=== PATIENT | female | born 1995 ===

== ENCOUNTER 2017-03-01 13:03 | Emergency (ER) | payer OTHER ==
[2017-03-01 13:03] VITALS: BMI 27.8
[2017-03-01 14:05] VITALS: BP 102/72; PULSE 96
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
[2017-03-01 16:14] VITALS: RESP 16; TEMP 98.2; O2SAT 100
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
--- NOTE | 2017-03-01 16:58 | RAD ---
PROCEDURE: Radiographs of Nasal Bones HISTORY: trauma COMPARISON: None available. TECHNIQUE: Frontal and lateral radiographs of the nasal bones. FINDINGS: No definitive radiographic evidence of acute displaced left-sided nasal bone fracture. Right nasal bone appears somewhat blunted along its tip which could represent an anatomic variant. Anterior nasal spine appears intact as well. Consider followup CT scan if fracture is suspected clinically as CT is much more sensitive for detecting subtle maxillofacial skeletal fractures that may not be readily apparent on plain film imaging. IMPRESSION: No convincing evidence of acute displaced fracture nor dislocation however there is some blunting of the tip of the right nasal bones that may represent an anatomic variation. Decreased. Anterior nasal spine is intact. Consider followup CT scan if further evaluation is required as detailed above.
== END 2017-03-01 16:15 | disposition home or self-care (01) ==
LOC: ED 13:03
DX: S00.83XA Contusion of other part of head, initial encounter (principal); Y04.2XXA Assault by strike against or bumped into by another person, initial encounter; Y92.89 Other specified places as the place of occurrence of the external cause

== ENCOUNTER 2017-03-26 19:09 | Observation (INO) | payer OTHER ==
[2017-03-26 19:10] VITALS: BMI 27.8
[2017-03-26 19:17] VITALS: TEMP 98.7
[2017-03-26] MEDS ORDERED: Albuterol-Ipratrop 3 mg / 0.5 (3 ml) UD IH STA (19:24)
[2017-03-26] MEDS ORDERED: Sodium Chloride 0.9% 1,000 ML IV STA (19:24)
[2017-03-26] MEDS ORDERED: DiphenhydrAMINE 50 mg/ml Inj IVP STA (19:25)
--- NOTE | 2017-03-26 19:27 | ED PDOC ---
Arrival/HPI - General Chief Complaint: Shortness Of Breath Time Seen by Provider: 03/26/17 19:18 Historian: Patient - History of Present Illness Narrative History of Present Illness (Text): 21 y/o F c previous allergic reaction to peanut butter p/w shortness of breath x 30 minutes. Patient states she was at friend's house today who has a dog and dog ate unknown material (suspecting peanut butter?). She began having some facial flushing and swelling and went to her PMD today and was started on cetirizine. She states that she began having worsening shortness of breath in the last 30 minutes with coughing after which she developed some redness in her eyes. She reports cough x 2 days productive of yellow sputum. Denies fever, vomiting, throat swelling, voice change, drooling. Past Medical History - Provider Review Nursing Documentation Reviewed: Yes - Past History Past History: No Previous - Infectious Disease Hx of Infectious Diseases: None - Tetanus Immunization Tetanus Immunization: Up to Date - Past Medical History Past Medical History: No Previous - Cardiac Hx Cardiac Disorders: No - Pulmonary Hx Respiratory Disorders: Yes Other/Comment: SEASONAL ALLERGY - Neurological Hx Neurological Disorder: No - HEENT Hx HEENT Disorder: No - Renal Hx Renal Disorder: No - Endocrine/Metabolic Hx Endocrine Disorders: No - Hematological/Oncological Hx Blood Disorders: No - Integumentary Hx Dermatological Disorder: No - Musculoskeletal/Rheumatological Hx Falls: No - Gastrointestinal Hx Gastrointestinal Disorders: No - Genitourinary/Gynecological Hx Genitourinary Disorders: No - Psychiatric Hx Psychophysiologic Disorder: No Hx Substance Use: No - Past Surgical History Past Surgical History: No Previous - Surgical History Hx Cholecystectomy: Yes - Anesthesia Hx Anesthesia: Yes - Suicidal Assessment Feels Threatened In Home Enviroment: No Family/Social History - Physician Review Nursing Documentation Reviewed: Yes Family/Social History: No Known Family HX Smoking Status: Never Smoked Hx Alcohol Use: No Hx Substance Use: No Hx Substance Use Treatment: No Allergies/Home Meds Allergies/Adverse Reactions: Allergies Peanut butter Adverse Reaction (Uncoded 03/26/17 19:11) RASH Home Medications: Home Meds Medication Instructions Recorded Confirmed Cetirizine HCl [Wal-Zyr] 10 mg PO DAILY 03/26/17 03/26/17 Review of Systems - Physician Review All systems were reviewed & negative as marked: Yes - Review of Systems Constitutional: absent: Fevers Cardiovascular: absent: Chest Pain Physical Exam - Physical Exam Narrative Physical Exam (Text): Constitutional: No acute distress. Head: Normocephalic. Atraumatic. Eyes: PERRL. Bilateral subconjunctival hemorrhage. ENT: Moist mucous membranes. Airway patent. No throat swelling or drooling. Neck: Supple. Cardiovascular: Regular rate. Chest: No tenderness. Respiratory: Clear to auscultation bilaterally. No wheezing. GI: Soft. Nontender. Nondistended. Back: No CVA tenderness. Musculoskeletal: No tenderness or swelling of extremities. Skin: No rash. Neurologic: Alert, no focal deficit. Vital Signs Reviewed: Yes Vital Signs Temp Pulse Resp BP Pulse Ox 03/26/17 22:59 91 H 16 116/82 100 03/26/17 19:30 18 100 03/26/17 19:12 98.7 F 119 H 16 115/79 99 Temperature: Afebrile Blood Pressure: Normal Pulse: Tachycardic Respiratory Rate: Normal Appearance: Positive for: Well-Appearing, Non-Toxic, Comfortable Pain Distress: None Mental Status: Positive for: Alert and Oriented X 3 Medical Decision Making ED Course and Treatment: 21 y/o F c subjective shortness of breath without signs of dyspnea. Bilateral subconjunctival hemorrhage after coughing episode. Likely differential includes mild allergic reaction vs URI vs mild pneumonia. Will assess with CXR and treat with Benadryl, Pepcid, IVF, duoneb and reassess. - Lab Interpretations I have reviewed the lab results: Yes - RAD Interpretation Radiology Orders: 03/26/17 19:24 CHEST TWO VIEWS (PA/LAT) [RAD] Stat 03/26/17 21:57 ANGIO CHEST PE PROTOCOL [CT] Stat - Medication Orders Current Medication Orders: Discontinued Medications Albuterol/Ipratropium (Duoneb 3 Mg/0.5 Mg (3 Ml) Ud) 3 ml IH STAT STA Stop: 03/26/17 19:25 Last Admin: 03/26/17 19:36 Dose: 3 ml Diphenhydramine HCl (Benadryl) 50 mg IVP STAT STA Stop: 03/26/17 19:26 Last Admin: 03/26/17 19:35 Dose: 50 mg Famotidine (Pepcid) 20 mg IVP STAT STA Stop: 03/26/17 19:26 Last Admin: 03/26/17 19:35 Dose: 20 mg Sodium Chloride (Sodium Chloride 0.9%) 1,000 mls @ 999 mls/hr IV .Q1H1M STA Stop: 03/26/17 20:24 Last Admin: 03/26/17 19:35 Dose: 999 mls/hr Iodixanol (Visipaque 320 Mg/Ml 100 Ml) Confirm Administered Dose 100 ml IV .STK- MED ONE Stop: 03/26/17 22:10 ED OBSERVATION Discharge: Yes Date of observation admission: 03/26/17 Time of observation admission: 22:00 - Observation admission statement Patient is being placed in observation because:: Patient states does not feel better at all after treatment - Goals of Observation Goals of observation are:: further evaluate patient - Progress Note Progress Note: 03/26/17 23:43 CT Angiography Chest With Intravenous Contrast FINDINGS: Pulmonary arteries: No evidence of pulmonary embolus. Aorta: No evidence of acute pathology. No thoracic aortic aneurysm. Lungs: Patchy areas of hyperinflation seen in bilateral lungs more prominent in left upper lobe. Mild reticulonodular parenchymal disease in left upper lobe. Pleural space: Unremarkable. No significant effusion. No pneumothorax. Heart: Unremarkable. No cardiomegaly. No significant pericardial effusion. No evidence of RV dysfunction. Bones/joints: No acute fracture. No dislocation. Soft tissues: Unremarkable. Lymph nodes: Unremarkable. No enlarged lymph nodes. 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 IMPRESSION: 1. No evidence of pulmonary embolus. 2. Patchy areas of hyperinflation seen in bilateral lungs more prominent in left upper lobe. This finding can be seen in asthma. Please correlate clinically. 3. Mild reticulonodular parenchymal disease in left upper lobe. Differential diagnosis includes scarring versus mild patchy infiltrates. Dictated and Authenticated by: Danita Caballero MD 03/26/2017 11:42 PM Eastern Time ([place] & [place]) Patient in no acute distress. Labs unremarkable. HR improved to normal. Will treat with short course of antibiotics and instructed to f/u with PMD, return to ER for worsening breathing, fever, or any other problem. - Scribe Statement The provider has reviewed the documentation as recorded by the Tk Zafar Provider Scribe Attestation: All medical record entries made by the Scribe were at my direction and personally dictated by me. I have reviewed the chart and agree that the record accurately reflects my personal performance of the history, physical exam, medical decision making, and the department course for this patient. I have also personally directed, reviewed, and agree with the discharge instructions and disposition. Disposition/Present on Arrival - Present on Arrival Any Indicators Present on Arrival: No History of DVT/PE: No History of Uncontrolled Diabetes: No Urinary Catheter: No History of Decub. Ulcer: No History Surgical Site Infection Following: None - Disposition Have Diagnosis and Disposition been Completed?: Yes Diagnosis: Shortness of breath Disposition: HOME/ ROUTINE Disposition Time: 23:54 Patient Plan: Discharge Condition: STABLE
[2017-03-26] MEDS ORDERED: Iodixanol 320 MG/ML 100 ML BOTTLE IV ONE (22:09)
[2017-03-26 22:31] LABS: ADD MANUAL DIFF? NO
[2017-03-26 22:34] LABS: BASO # 0.04 K/mm3 (0.0-2.0); BASO % 0.5 % (0.0-3.0); EOS # 0.1 (0.0-0.7); EOS % 1.5 % (1.5-5.0); GRAN # 4.92 (1.4-6.5); GRAN % 59.8 % (50.0-68.0); LYMPH # 2.5 (1.2-3.4); LYMPH % 30.3 % (22.0-35.0); MEAN CELL VOLUME 90.9 fL (80.0-105.0); MEAN CORPUSCULAR HEMOGLOBIN 29.6 pg (25.0-35.0); MEAN CORPUSCULAR HGB CONC 32.6 g/dl (31.0-37.0); MONO # 0.7 (0.1-0.6); MONO % 7.9 % (1.0-6.0); PLATELET COUNT 255 10^3/uL (120.0-450.0); RED CELL DISTRIBUTION WIDTH 13.4 % (11.5-14.5); WHITE BLOOD COUNT 8.2 10^3/ul (4.5-11.0)
[2017-03-26 22:46] LABS: ALB/GLOB RATIO 1.3 (1.1-1.8); ALKALINE PHOSPHATASE 70 U/L (38-133); ALT/SGPT 25 U/L (7-56); AST/SGOT 26 U/L (15-39); BILIRUBIN,TOTAL 0.4 mg/dL (0.2-1.3); BLOOD UREA NITROGEN 10 mg/dL (7-21); CALCIUM 8.4 mg/dL (8.4-10.5); CARBON DIOXIDE 24 mmol/L (21-33); CHLORIDE 108 mmol/L (95-110); GFR AFRICAN-AMERICAN > 60; GLUCOSE,RANDOM 109 mg/dL (70-110); POTASSIUM 3.9 mmol/L (3.6-5.0); SODIUM 142 mmol/L (132-148); TOTAL PROTEIN 7.2 g/dL (5.8-8.3)
[2017-03-26 23:13] VITALS: BP 116/82; RESP 16
[2017-03-27 00:03] VITALS: PULSE 81; O2SAT 99
--- NOTE | 2017-03-27 10:03 | RAD ---
HISTORY: cough, dyspnea COMPARISON: No prior. TECHNIQUE: Chest PA and lateral FINDINGS: LUNGS: No active pulmonary disease. PLEURA: No significant pleural effusion identified. No pneumothorax apparent. CARDIOVASCULAR: Normal. OSSEOUS STRUCTURES: No significant abnormalities. VISUALIZED UPPER ABDOMEN: Normal. OTHER FINDINGS: None. IMPRESSION: No active disease.
--- NOTE | 2017-03-27 12:41 | CT ---
PROCEDURE: CT Chest with contrast (Pulmonary Angiogram) HISTORY: dyspnea, pleuritic back pain COMPARISON: None available. TECHNIQUE: Axial computed tomography images were obtained of the chest in the pulmonary arterial phase of enhancement. Coronal and sagittal reformatted images were created and reviewed. Intravenous contrast dose: Radiation dose: Total exam DLP = mGy-cm. This CT exam was performed using one or more of the following dose reduction techniques: Automated exposure control, adjustment of the mA and/or kV according to patient size, and/or use of iterative reconstruction technique. Intravenous contrast dose: 100 cc of Omnipaque 300 Radiation dose: Total exam DLP = 700 mGy-cm. FINDINGS: PULMONARY ARTERIES: Unremarkable. No pulmonary embolism. AORTA: No acute findings. No thoracic aortic aneurysm. LUNGS: Unremarkable. No nodule, mass or pulmonary consolidation. PLEURAL SPACES: Unremarkable. No effusion or pneuomothorax. HEART: Unremarkable. No cardiomegaly. No significant pericardial effusion. LYMPH NODES: No lymphadenopathy. BONES, CHEST WALL: Unremarkable. No fracture or destructive lesion OTHER FINDINGS: Unremarkable. IMPRESSION: Unremarkable CT pulmonary angiogram. No pulmonary embolus.
== END 2017-03-26 23:52 | disposition home or self-care (01) ==
LOC: ED 19:09 → EROBSV 21:58
PROVIDERS: ADMIT Student in an Organized Health Care Education/Training Program; ATTEND Student in an Organized Health Care Education/Training Program
DX: R06.02 Shortness of breath (principal)
CPT/HCPCS: 36415; 71020; 71275; 80053; 85025; 85378; 87804; 94640; 96374; 96375; 99284; G0378; J1200; J7040; Q9967